=== PATIENT | female | born 1955 | race Hispanic/Latino ===

== ENCOUNTER 2016-05-07 11:03 | Outpatient (CLI) | payer OTHER ==
--- NOTE | 2016-05-08 09:59 | Echocardiography Report ---
Transthoracic Echocardiogram Indication: CARDIOMEGALY PNUEMONIA BP: 178/98 Findings Procedure Info: The study quality is poor. The study is technically limited due to poor acoustic windows. The study is technically limited due to the patient's history of COPD. Left Ventricle: The left ventricular chamber size is normal. Mild concentric left ventricular hypertrophy is observed. Global left ventricular wall motion and contractility are within normal limits. Global left ventricular systolic function is normal. The estimated ejection fraction is 65-70%. Normal left ventricular diastolic filling is observed. Left Atrium: The left atrial chamber size is normal. Right Ventricle: The right ventricle is not well visualized. The right ventricle wall thickness is mildly increased. The right ventricular cavity size is normal. The right ventricular global systolic function is normal. Right Atrium: The right atrium is not well visualized. The right atrial cavity size is normal. The interatrial septum appears normal. Aortic Valve: The aortic valve is not well visualized. The aortic valve leaflets are mildly thickened. There is no evidence of aortic regurgitation. There is no evidence of aortic stenosis. Mitral Valve: The mitral valve leaflets appear myxomatous. The mitral valve leaflets are mildly thickened. There is trace of mitral regurgitation. There is no evidence of mitral stenosis. Tricuspid Valve: The tricuspid valve is not well visualized. There is trace tricuspid regurgitation. The right ventricular systolic pressure is estimated to be 15-20 mmHg. No pulmonary hypertension is noted. There is no tricuspid stenosis. Pulmonic Valve: The pulmonic valve appears normal. There is no evidence of pulmonic regurgitation. There is no pulmonic stenosis. Pericardium: A trivial pericardial effusion is visualized. Aorta: There is no dilatation of the aortic root. Venous: The inferior vena cava appears normal in size. Contrast: Definity was used to optimize study. Intravenous contrast was used to enhance endocardial border definition. Measurements Chambers MM Name Value Normal Range Ao root diameter (MM) 3.3 cm (2 - 3.7) LA dimension (AP) MM 4.3 cm (1.9 - 4) LA:Ao ratio (MM) 1.3 ratio - AV cusp separation (MM) 2 cm (1.5 - 2.6) Chambers 2D Name Value Normal Range RVIDd (AP) 2D 3.86 cm (0.9 - 2.6) IVSd (2D) 0.92 cm (0.6 - 1.1) LVPWd (2D) 0.93 cm (0.6 - 1.1) IVS:LVPW ratio (2D) 0.99 ratio - LVIDd (2D) 4.28 cm (3.7 - 5.6) LVIDs (2D) 2.84 cm (2 - 3.8) LV FS (Teichholz) (2D) 33.6 % - LV FS (cube) (2D) 33.6 % - EF Teichholz (2D) 62.8 % - Ao root diameter (2D) 2.9 cm (2 - 3.7) LA dimension (AP) 2D 3 cm (1.9 - 4) LA:Ao ratio (2D) 1.03 ratio - Volumes/Mass Name Value Normal Range LA ESV SP 4CH (MOD) 34 ml - LA ESV SP 2CH (MOD) 40 ml - LA ESV BP (MOD) 39 ml - LA ESV BP (MOD) index 20.2 ml/m2 - Diastolic/Systolic Function Name Value Normal Range MV E-wave Vmax 0.9 m/sec - MV deceleration time 180 msec - MV A-wave Vmax 0.93 m/sec - MV E:A ratio 1 ratio - LV septal e' Vmax 0.08 m/sec - LV lateral e' Vmax 0.07 m/sec - LV E:e' septal ratio 11.3 ratio - LV E:e' lateral ratio 12.4 ratio - Aortic Valve Name Value Normal Range AV Vmax 1.36 m/sec - AV peak gradient 7 mmHg - LVOT diameter 2.1 cm - LVOT Vmax 1.16 m/sec - LVOT peak gradient 5 mmHg - MARQUIS (continuity Vmax) 2.95 cm2 - Tricuspid Valve Name Value Normal Range TV E-wave Vmax 0.52 m/sec - Pulmonic Valve/Qp:Qs Name Value Normal Range PV Vmax 0.94 m/sec - PV peak gradient 4 mmHg - PV acceleration time 134 msec -
== END 2016-05-07 11:04 | disposition home or self-care (01) ==
LOC: ECHO 11:03
PROVIDERS: ATTEND Internal Medicine
DX: I51.7 Cardiomegaly (principal); J18.9 Pneumonia, unspecified organism
CPT/HCPCS: 93306

== ENCOUNTER 2016-05-21 10:12 | Outpatient (CLI) | payer OTHER ==
--- NOTE | 2016-05-21 12:08 | Cat Scan Report ---
CT CHEST WITHOUT CONTRAST HISTORY: Persistent cough. TECHNIQUE: Helical CT with sagittal and coronal reformatted images. COMPARISON: None at this facility. FINDINGS: The thyroid gland, tracheobronchial tree, esophagus, heart, pericardium and mediastinal vessels are unremarkable. No mediastinal mass or adenopathy Perhaps minimal centrilobular emphysematous changes are identified in the upper lung zones. Otherwise the lungs are clear. No evidence for mass, pneumonia, pleural effusion or pneumothorax. A right breast prosthesis appears to be ruptured. The left prosthesis is intact. The thoracic cage is intact. Limited images of the upper abdomen demonstrate cholecystectomy, splenectomy and moderate atrophy of the left kidney. IMPRESSION: No acute cardiopulmonary process. Minimal emphysematous changes in the upper lobes. Ruptured right breast prosthesis. Cholecystectomy, splenectomy and left renal atrophy.
== END 2016-05-21 10:13 | disposition home or self-care (01) ==
LOC: CT 10:12
PROVIDERS: ATTEND Specialist
DX: N26.1 Atrophy of kidney (terminal) (principal); Z98.82 Breast implant status; Z90.49 Acquired absence of other specified parts of digestive tract; Z90.81 Acquired absence of spleen
CPT/HCPCS: 71250